=== PATIENT | female | born 1990 | race African-American/Black ===

== ENCOUNTER 2017-04-15 10:19 | Emergency (ER) | payer OTHER ==
[~2017-04-15] VITALS: Ht 165.1 cm; Wt 87.1 kg
[2017-04-15 13:02] VITALS: BP 121/70
== END 2017-04-15 13:02 | disposition short-term general hospital (02) ==
LOC: ED 10:19
DX: O46.92 Antepartum hemorrhage, unspecified, second trimester (principal); Z3A.24 24 weeks gestation of pregnancy

== ENCOUNTER 2019-07-31 15:50 | Emergency (ER) | payer SELFPAY ==
[~2019-07-31] VITALS: Ht 165.1 cm; Wt 102.1 kg
[2019-07-31 15:53] VITALS: BP 138/73; Ht 165.1 cm; Wt 102.1 kg
== END 2019-07-31 17:06 | disposition home or self-care (01) ==
LOC: ED 15:50
DX: M26.601 Right temporomandibular joint disorder, unspecified (principal); J45.909 Unspecified asthma, uncomplicated; Z98.890 Other specified postprocedural states